=== PATIENT | female | born 1950 | race Caucasian/White ===

== ENCOUNTER → 2017-08-28 | Outpatient (CLI) | payer MEDICARE, BC ==
--- NOTE | 2017-08-28 11:31 | BD ---
EXAMINATION TYPE: Axial Bone Density DATE OF EXAM: 08/28/2017 COMPARISON: NONE CLINICAL HISTORY: Height: 64.5 Weight: 148.7 FRAX RISK QUESTIONS: Alcohol (3 or more units per day): no Family History (Parent hip fracture): no Glucocorticoids (More than 3mos): no (Ex: prednisone, prednisolone, methylprednisolone, dexamethasone, and hydrocortisone). History of Fracture in Adulthood: no Secondary Osteoporosis: 1. Type 1 Diabetes: no 2. Hyperthyroidism: no 3. Menopause before 45: no 4. Malnutrition: no 5. Chronic liver disease: no Rheumatoid Arthritis: no Current Tobacco Use: no RISK FACTORS HISTORY OF: Family History of Osteoporosis: no Active: yes Diet low in dairy products/other sources of calcium: no Postmenopausal woman: age 50 Lost more than 2 inches in height since high school: no Frequent falls: no Adrenal Insufficiency: no MEDICATIONS: Thyroid Medications: Levoxyl How Lon years Additional History: EXAM MEASUREMENTS: Bone mineral densitometry was performed using the [employer] System. Bone mineral density as measured about the Lumbar spine is: ----- L1-L4(G/cm2): 1.098 T Score Values are as follows: ----- L2: -1.7 ----- L3: -0.9 ----- L4: 1.0 ----- L1-L4: -0.7 Bone mineral density BASELINE Bone mineral density about the R hip (g/cm2): 0.859 Bone mineral density about the L hip (g/cm2): 0.877 T Score values are as follows: -----R Neck: -1.3 -----L Neck: -1.2 -----R Total: -0.9 -----L Total: -1.2 Bone mineral density has BASELINE IMPRESSION: Osteopenia (T Score between -2.5 and -1) at femoral neck level in both hips. There is slightly increased risk of fracture and the patient may be considered for treatment. Re-Screen 2-5 years. NOTE: T-SCORE=SD OF THE YOUNG ADULT MEAN.
--- NOTE | 2017-08-29 13:21 | MM ---
Reason for exam: screening (asymptomatic). Last mammogram was performed 3 years and 6 months ago. History: Patient is postmenopausal. Physical Findings: A clinical breast exam by your physician is recommended on an annual basis and results should be correlated with mammographic findings. MG 3D Screening Mammo W/Cad Bilateral CC and MLO view(s) were taken. Prior study comparison: March 14, 2014, bilateral MG diagnostic mammo w CAD [facility]. February 10, 2012, bilateral digital screening mammo w/CAD. The breast tissue is heterogeneously dense. This may lower the sensitivity of mammography. Finding: There are typically benign vascular calcifications in both breasts. No suspicious abnormality. ASSESSMENT: Benign, BI-RAD 2 RECOMMENDATION: Routine screening mammogram of both breasts in 1 year.
== END | disposition home or self-care (01) ==
LOC: RADMAMWWP 08:21
PROVIDERS: ATTEND Family Medicine
DX: Z12.31 Encounter for screening mammogram for malignant neoplasm of breast (principal); M85.88 Other specified disorders of bone density and structure, other site; R00.2 Palpitations; I71.4 Abdominal aortic aneurysm, without rupture
CPT/HCPCS: 77063; 77067; 77080

== ENCOUNTER → 2018-12-03 | Outpatient (CLI) | payer MEDICARE, BC ==
--- NOTE | 2018-12-03 09:43 | US ---
EXAMINATION TYPE: US duplex aorta DATE OF EXAM: 12/03/2018 COMPARISON: NONE CLINICAL HISTORY: I71.4 Abdominal aortic aneurysm, without rupture. No HTN, No hx of AAA EXAM MEASUREMENTS: Abdominal Aorta: Proximal: 2.0 x 2.0 cm Mid: 1.5 x 1.7 cm Distal: 1.4 x 1.6 cm Bifurcation: Right - 0.8 x 0.8 cm Left- 0.8 x 0.8 cm No AAA visualized IMPRESSION: No sonographic evidence of abdominal aortic aneurysm.
== END ==
LOC: RADUSWWP 08:50
PROVIDERS: ATTEND Family Medicine
DX: I71.4 Abdominal aortic aneurysm, without rupture (principal)
CPT/HCPCS: 93979

== ENCOUNTER → 2022-11-22 | Outpatient (CLI) | payer MEDICARE ==
--- NOTE | 2022-11-23 09:35 | MR ---
EXAMINATION TYPE: MR cervical spine wo con DATE OF EXAM: 11/22/2022 INDICATION: Patient age: Female; 72 years old; Reason for study: M54.2 M47.812. Neck pain COMPARISON: None. TECHNIQUE: Multi planar, multi sequence imaging was performed utilizing: T1-weighted, T2-weighted, an d turbo inversion recovery imaging of the cervical spine. IV Contrast: None. FINDINGS: Alignment: The cervical vertebral bodies have preserved heights. Grade 1 anterolisthesis C5 on C6 and C6 on C7. Bones: Scattered osteophytes and disc space narrowing. Multilevel degenerative disc disease is noted and most pronounced at the C5-C7 vertebral levels. Cord: The spinal cord is unremarkable with regards to their signal intensity and morphology. Discs: Intervertebral disc signal is maintained. C2-C3: No significant disc pathology. The spinal canal is patent. No neural foraminal stenosis. C3-C4: No significant disc pathology. The spinal canal is patent. No neural foraminal stenosis. C4-C5: No significant disc pathology. The spinal canal is patent. Bilateral facet and uncovertebral joint arthropathy are present with mild right neural foraminal stenosis. The left neural foramen is p atent. C5-C6: No significant disc pathology. The spinal canal is patent. Bilateral facet and uncovertebral joint arthropathy are present with mild bilateral neural foraminal stenosis. C6-C7: No significant disc pathology. The spinal canal is patent. Bilateral facet and uncovertebral joint arthropathy are present with mild left neural foraminal stenosis. The right neural foramen is p atent. C7-T1: No significant disc pathology. The spinal canal is patent. No neural foraminal stenosis. Other: T4-T5 left perineural cyst partially visualized. IMPRESSION: 1. No evidence for disc herniation or significant spinal canal stenosis. 2. Mild disc degeneration with associated osteoarthritic changes. 3. Grade 1 anterolisthesis of C5 on C6 and C6 on C7.
== END | disposition home or self-care (01) ==
LOC: RADMRIMAIN 15:31
PROVIDERS: ATTEND Physical Medicine & Rehabilitation
DX: M43.12 Spondylolisthesis, cervical region (principal); M50.320 Other cervical disc degeneration, mid-cervical region, unspecified level; M50.321 Other cervical disc degeneration at C4-C5 level; M50.323 Other cervical disc degeneration at C6-C7 level; M50.33 Other cervical disc degeneration, cervicothoracic region; M47.812 Spondylosis without myelopathy or radiculopathy, cervical region
CPT/HCPCS: 72141

== ENCOUNTER → 2023-07-07 | Outpatient (CLI) | payer MEDICARE ==
--- NOTE | 2023-07-09 12:53 | MM ---
Reason for Exam: Screening (asymptomatic). Last mammogram was performed 5 year(s) and 10 month(s) ago. Patient History: Menarche at age 14. First Full-Term at age 21. Left ovary removed at age 50. Right ovary removed at age 50. Hysterectomy at age 50. Postmenopausal. Risk Values: Duyen 5 year model risk: 1.6%. NCI Lifetime model risk: 4.1%. Prior Study Comparison: 02/10/2012 Bilateral Screening Mammogram, [facility]. 03/14/2014 Bilateral Diagnostic Mammogram, [facility]. 08/28/2017 Bilateral Screening Mammogram, [facility]. Tissue Density: There are scattered areas of fibroglandular density. Findings: Analyzed By CAD. There is no suspicious group of microcalcifications or new suspicious mass. Overall Assessment: Negative, BI-RAD 1 Management: Screening Mammogram of both breasts in [address] [facility] will attempt to contact patient to return for supplemental views and ultrasound if indicated. Patient should continue monthly self-breast exams. A clinical breast exam by your physician is recommended on an annual basis. This exam should not preclude additional follow-up of suspicious palpable abnormalities. Note on Duyen scores and lifetime risk: 1. A Duyen score greater than 3% is considered moderate risk. If this is the case, consider specialist referral to assess eligibility for a risk reducing agent. 2. If overall lifetime risk for the development of breast cancer is 20% or higher, the patient may qualify for future screening with alternating mammogram and breast MRI. Electronically signed and approved by: Escobar Su DO
== END | disposition home or self-care (01) ==
LOC: RADMAMWWP 08:20
PROVIDERS: ATTEND Family Medicine
DX: Z12.31 Encounter for screening mammogram for malignant neoplasm of breast (principal); Z78.0 Asymptomatic menopausal state
CPT/HCPCS: 77063; 77067